=== PATIENT | male | born 1980 | race Caucasian/White ===

== ENCOUNTER 2017-04-13 02:09 | Emergency (ER) | payer SELFPAY ==
[2017-04-13 02:16] VITALS: BP 129/79; PULSE 88; RESP 16; TEMP 98.4
[2017-04-13] MEDS ORDERED: METHOCARBAMOL 750 MG TAB PO STA (03:00)
[2017-04-13] MEDS ORDERED: DEXAMETHASONE SOD PHOSPHATE 10 MG/ML 1 ML VIAL IM STA (03:00)
[2017-04-13] MEDS ORDERED: HYDROcodone/APAP 5-325MG 1 EACH TAB PO STA (03:01)
--- NOTE | 2017-04-13 03:06 | ED ---
Back Pain HPI - General Chief Complaint: Back Pain/Injury Stated Complaint: Hip Pain Time Seen by Provider: 04/13/17 02:29 Source: patient, RN notes reviewed, old records reviewed Limitations: no limitations - History of Present Illness Initial Comments: This patient is a 36-year-old male with chief complaint of severe left hip pain and lower back pain. He has history of sciatica. He states that he is not from this area. He reports that he started to have this pain a few days ago. He is appear for work. Patient states that he has no saddle anesthesias. Denies any urinary incontinence or fecal incontinence. Patient has had no traumatic falls or injury. He states that in the past steroids have helped him. He has been taking Motrin with little relief.Patient denies any recent fever, chills, shortness of breath, chest pain,abdominal pain, nausea vomiting, numbness or tingling, dysuria or hematuria, constipation or diarrhea, headaches or visual changes, or any other current symptoms - Related Data Previous Rx's Medication Instructions Recorded Cyclobenzaprine [Flexeril] 10 mg PO TID #15 tab 04/13/17 Dexamethasone 0.75 mg PO DAILY #12 tab 04/13/17 HYDROcodone/APAP 5-325MG [[place] 1 tab PO Q4HR PRN #20 tab 04/13/17 5-325] Allergies Allergy/AdvReac Type Severity Reaction Status Date / Time No Known Allergies Allergy Verified 04/13/17 02:15 Review of Systems ROS Statement: Those systems with pertinent positive or pertinent negative responses have been documented in the HPI. ROS Other: All systems not noted in ROS Statement are negative. Past Medical History Additional Past Medical History / Comment(s): back pain History of Any Multi-Drug Resistant Organisms: None Reported Past Surgical History: Hernia Repair Past Psychological History: No Psychological Hx Reported Smoking Status: Former smoker Past Alcohol Use History: None Reported Past Drug Use History: None Reported General Exam - General Exam Comments Initial Comments: This patient is a 36-year-old male. No acute distress. Limitations: no limitations General appearance: alert, in no apparent distress Head exam: Present: atraumatic, normocephalic, normal inspection Eye exam: Present: normal appearance, PERRL, EOMI. Absent: scleral icterus, conjunctival injection, periorbital swelling ENT exam: Present: normal exam, mucous membranes moist Neck exam: Present: normal inspection. Absent: tenderness, meningismus, lymphadenopathy Respiratory exam: Present: normal lung sounds bilaterally. Absent: respiratory distress, wheezes, rales, rhonchi, stridor Cardiovascular Exam: Present: regular rate, normal rhythm, normal heart sounds. Absent: systolic murmur, diastolic murmur, rubs, gallop, clicks GI/Abdominal exam: Present: soft, normal bowel sounds. Absent: distended, tenderness, guarding, rebound, rigid Extremities exam: Present: normal inspection, full ROM, normal capillary refill. Absent: tenderness, pedal edema, joint swelling, calf tenderness Back exam: Present: normal inspection, muscle spasm, paraspinal tenderness ( Patient has left lumbar paraspinal muscle tenderness.) Expanded Back exam: Positive Straight Leg Raise: Left Neurological exam: Present: alert, oriented X3, CN II-XII intact Psychiatric exam: Present: normal affect, normal mood Course Vital Signs 04/13/17 02:12 Temperature 98.4 F Pulse Rate 88 Respiratory 16 Rate Blood Pressure 129/79 O2 Sat by Pulse 98 Oximetry Medical Decision Making - Medical Decision Making Patient is 28-year-old male arrives emergency room with severe left-sided lower back pain radiating down his left leg. No falls or traumatic injury. He said multiple MRIs and imaging studies his hometown. Patient ports he is here for work. Patient had the symptoms for the past week. Difficulty time sleeping. Patient has no saddle anesthesias. Positive straight leg test on the left leg. He has full range of motion and sensation within the knee and lower leg and toes. I discussed the importance of monitoring for any saddle anesthesias and says agrees to return to emergency department once. Patient given IM Decadron, and Flexeril and pain medication. Patient will be discharged at this time with pain medication to parameters. Discussed monitoring for any concerns. Patient understood history plan will comply. Return parameters were discussed. Disposition Clinical Impression: Sciatica of left side Disposition: HOME SELF-CARE Condition: Good Instructions: Sciatica (ED) Additional Instructions: Patient advised to apply heat and ice over her lower back. 20 minutes 1 in the waiting wound 20 minutes at the other. Recommended follow with primary care physician or him specialists. Take the medications as prescribed. Return to the emergency department if any alarming signs or symptoms occur. Prescriptions: Cyclobenzaprine [Flexeril] 10 mg PO TID #15 tab Dexamethasone 0.75 mg PO DAILY #12 tab HYDROcodone/APAP 5-325MG [[place] 5-325] 1 tab PO Q4HR PRN #20 tab PRN Reason: Pain Referrals: None,Stated [Primary Care Provider] - 1-2 days Beckie Fernandes MD [STAFF PHYSICIAN] - 1-2 days Time of Disposition: 03:02
== END 2017-04-13 03:31 | disposition home or self-care (01) ==
LOC: EC 02:09
DX: M54.42 Lumbago with sciatica, left side (principal); Z87.891 Personal history of nicotine dependence
CPT/HCPCS: 99283; 96372; J1100